=== PATIENT | male | born 1995 | race Caucasian/White ===

== ENCOUNTER 2016-07-20 18:16 | Emergency (ER) | payer SELFPAY ==
[~2016-07-20] VITALS: Ht 172.7 cm; Wt 92.0 kg
[2016-07-20 18:35] VITALS: TEMP 37.5; Ht 172.7 cm; Wt 92.0 kg
--- NOTE | 2016-07-20 19:41 | DIAGNOSTIC IMAGING REPORT ---
RIGHT ANKLE 3 VIEWS CLINICAL HISTORY: Right ankle injury. FINDINGS: 3 views of the right ankle are obtained. No prior studies are available for comparison at the time of dictation. The skeletal structures are well mineralized. No fracture is seen at the ankle joint. The ankle mortise is intact. Mild degenerative spurring is seen from the anterior tibial plafond. An os trigonum is incidentally noted. A small joint effusion is noted. Soft tissue swelling is present around the ankle. A spiral fracture of the fifth metatarsal is partially visualized. IMPRESSION: 1. Soft tissue swelling and joint effusion. No fracture is identified at the ankle joint. 2. A spiral fracture of the fifth metatarsal is partially visualized. Electronically signed by: Tyshawn Morales M.D. 07/20/2016 7:40 PM Dictated Date/Time: 07/20/2016 7:38 PM
--- NOTE | 2016-07-20 19:43 | DIAGNOSTIC IMAGING REPORT ---
RIGHT FOOT 3 VIEWS CLINICAL HISTORY: Right foot injury. FINDINGS: 3 views of the right foot are obtained. No prior studies are available for comparison at the time of dictation. The skeletal structures are well mineralized. There is a minimally distracted and incomplete spiral fracture through the distal shaft of the fifth metatarsal with overlying soft tissue edema. No additional fracture is seen. Mild degenerative change and spurring is seen at the first tarsometatarsal joint. The joint spaces of the foot are otherwise well-maintained. An os trigonum is incidentally noted. Soft tissue swelling is also seen around the ankle joint. IMPRESSION: There is a minimally distracted incomplete spiral fracture through the distal shaft of the fifth metatarsal as above with overlying soft tissue edema. Electronically signed by: Tyshawn Morales M.D. 07/20/2016 7:41 PM Dictated Date/Time: 07/20/2016 7:40 PM
[2016-07-20 20:05] VITALS: BP 141/96; PULSE 96; O2SAT 99
--- NOTE | 2016-07-20 23:01 | EMERGENCY ROOM VISIT NOTE ---
History First contact with patient: 19:03 Chief Complaint: ANKLE PAIN Stated Complaint: RIGHT ANKLE PAIN History of Present Illness The patient is a 21 year old male who presents to the Emergency Room with complaints of right ankle and foot pain. The patient was at a friend's house, playing with children when he slipped and twisted his right ankle and foot. He now rates his pain a 10 out of 10 with weightbearing. He denies any pain extending into the leg or knee. Denies paresthesias or numbness of the right foot or toes. He also denies any prior history of right ankle or foot injuries. Review of Systems 10 system review was performed and was negative except for pertinent positives and negatives as indicated in history of present illness Past Medical/Surgical History Medical Problems: (1) Diarrhea (2) Dog bite (3) Lip laceration Family History Unremarkable Social History Smoking Status: Current Every Day Smoker Marital Status: single Occupation Status: unemployed Current/Historical Medications No Active Prescriptions or Reported Meds Allergies Coded Allergies: No Known Allergies (Unverified , 07/20/16) Physical Exam Vital Signs Date Time Temp Pulse Resp B/P Pulse Ox O2 Delivery O2 Flow Rate FiO2 07/20/16 20:05 96 16 141/96 99 Room Air 07/20/16 18:35 37.5 97 18 140/83 100 Room Air Pain Rating (0-10): 0 Physical Exam CONSTITUTIONAL: Healthy and well nourished. Alert and oriented X 3 with positive affect. HEENT: Normocephalic, atraumatic. Pupils equal, round and reactive. MUSCULOSKELETAL: Examination shows notable tenderness to palpation over the mid to distal fifth metatarsal region. There is mild edema without any open wounds. No tenderness to palpation of the phalanges. He has minimal tenderness to palpation over the lateral ankle region. Negative anterior draw. Pedal pulses are intact. INTEGUMENTARY: No rash or other significant dermatologic conditions noted. NEUROLOGIC: Right foot and toes are sensory intact. Medical Decision & Procedures ER Provider Diagnostic Interpretation: My interpretation of right foot and ankle x-rays shows a spiral fracture of the distal fifth metatarsal. Radiologist report is as follows: RIGHT FOOT 3 VIEWS CLINICAL HISTORY: Right foot injury. FINDINGS: 3 views of the right foot are obtained. No prior studies are available for comparison at the time of dictation. The skeletal structures are well mineralized. There is a minimally distracted and incomplete spiral fracture through the distal shaft of the fifth metatarsal with overlying soft tissue edema. No additional fracture is seen. Mild degenerative change and spurring is seen at the first tarsometatarsal joint. The joint spaces of the foot are otherwise well-maintained. An os trigonum is incidentally noted. Soft tissue swelling is also seen around the ankle joint. IMPRESSION: There is a minimally distracted incomplete spiral fracture through the distal shaft of the fifth metatarsal as above with overlying soft tissue edema. ED Course Patient history and physical exam were performed. Nurse's notes were reviewed. The patient refused any analgesics on initial exam. X-rays of the right ankle and foot shows a spiral fracture of the distal fifth metatarsal. A posterior Ortho-Glass splint and crutches were applied. Neurovascular check after splint placement was normal. The patient was instructed to follow-up with [facility] for further reevaluation and management. Ice and elevation for swelling. Ibuprofen and Tylenol in alternating fashion if needed for additional pain relief. The patient voiced understanding of all discharge instructions, was happy with plan of care, and rated his discomfort a 3 out of 10 at the time of discharge. Medical Decision Impression Primary Impression: Fracture of fifth metatarsal bone of right foot Departure Information Dispostion Home / Self-Care Condition GOOD Prescriptions No Active Prescriptions or Reported Meds Referrals Emeka Dao D.O. Forms HOME CARE DOCUMENTATION FORM, IMPORTANT VISIT INFORMATION Patient Instructions My [facility] Additional Instructions Ice and elevate foot for swelling and pain. Ibuprofen 800 mg and/or Tylenol 1000 mg every 8 hours. You may also alternate these medications for more effective pain relief: Ibuprofen --4 HRS--> Tylenol --4 HRS--> ibuprofen --4 HRS--> Tylenol .... Keep splint dry. Follow-up with [facility] (Dr. Dao) for further evaluation and treatment - call for appointment. Problem Qualifiers Primary Impression: Fracture of fifth metatarsal bone of right foot Encounter type: initial encounter Fracture type: closed Fracture alignment : nondisplaced Qualified Codes: S92.354A - Nondisplaced fracture of fifth metatarsal bone, right foot, initial encounter for closed fracture
== END 2016-07-20 20:28 | disposition home or self-care (01) ==
LOC: C.EDB 18:17 → C.EDD 20:28
DX: S92.354A Nondisplaced fracture of fifth metatarsal bone, right foot, initial encounter for closed fracture (principal); X50.0XXA Overexertion from strenuous movement or load, initial encounter; Y92.89 Other specified places as the place of occurrence of the external cause; F17.210 Nicotine dependence, cigarettes, uncomplicated

== ENCOUNTER 2017-08-22 19:50 | Emergency (ER) | payer OTHER ==
[~2017-08-22] VITALS: Ht 175.3 cm; Wt 86.0 kg
[2017-08-22 19:52] VITALS: BP 149/93; PULSE 82; TEMP 36.6; O2SAT 98; Ht 175.3 cm; Wt 86.0 kg
[2017-08-22] MEDS ORDERED: IBUP-1050 PO (20:23)
[2017-08-22] MEDS ORDERED: PENI500T2 PO (20:39)
--- NOTE | 2017-08-22 20:39 | EMERGENCY ROOM VISIT NOTE ---
ED Visit Note First contact with patient: 19:56 CHIEF COMPLAINT: Bilateral upper dental pain times several weeks HISTORY OF PRESENT ILLNESS: Patient is a 22-year-old male who presents emergency department for evaluation of bilateral upper dental pain. He has had symptoms for several weeks. He notes pain from his upper molars bilaterally. He describes the pain as a constant, throbbing pain it radiates to his ears. He states that it is constant and presently rates as a 10/10. He has tried taking Tylenol intermittently for his symptoms. He occasionally feels nauseous due to the pain. He reports that he has not been brushing his teeth lately due to discomfort. He does not have insurance and is unable to see a dentist. His roommate recently finished dental assistant curator school, and did contact [facility] who referred the patient to the emergency department pending intake interview. Denies facial swelling or fever. REVIEW OF SYSTEMS: Review of systems as per HPI. All other systems reviewed were negative. At least 6 systems reviewed. PMH: Electronic medical records are reviewed and summarized as above/below. See Problem List. SOCIAL HISTORY: Patient lives at home. Smoker. PHYSICAL EXAM: Vital Signs: Reviewed Nurse's notes. CONSTITUTIONAL: Patient is a well-appearing 22-year-old male who is awake and alert and in no acute distress. Vital signs are stable. EARS: Tympanic membranes intact, not inflamed, have normal contour. External canals clear. MOUTH: Overall the patient has poor dentition. Multiple teeth are grossly fractured and carious and in various states of decay. The left upper second molar and the left upper third molar are both fractured and grossly carious, with some erosion to the gumline and exposed dentin. There is slight swelling along the gumline although no focal abscess. Mucous membranes moist, no lesions , tongue and gums appear normal. THROAT: No pharyngeal injection, exudates, or tonsillar hypertrophy. Airway is patent. No trismus noted. FACE: No facial swelling is appreciated. No cellulitic changes. NECK: No lymphadenopathy. . ED COURSE: The patient was seen and assessed as above. His old records were reviewed. He will be placed on [employer]. He was given a [place] home pack. He was encouraged to keep his appointment with [facility] to become established for dental care. He does not have any evidence for facial cellulitis, drainable abscess or Noel's angina at this time. Medication reconciliation: I attest that I have personally reviewed the patient' s current medication list. Patient was reviewed in the [facility] Prescription Drug Monitoring Program, and there were no red flags noted. Blood pressure screening: Patient was found to have a slightly elevated blood pressure due to circumstances. I do not believe that the patient requires hypertension monitoring. Problem List Medical Problems: (1) Concussion Status: Resolved (2) Diarrhea Status: Resolved (3) Dog bite Status: Resolved (4) Fracture of fifth metatarsal bone of right foot Status: Resolved (5) Fracture of fifth metatarsal bone of right foot Status: Resolved (6) Hand laceration Status: Resolved (7) Lip laceration Status: Resolved (8) Tourette's syndrome Status: Chronic Current/Historical Medications Scheduled Penicillin V Potassium (Veetids), 500 MG PO QID Scheduled PRN Ibuprofen (Advil), 400 MG PO DAILY PRN for Pain or Fever Allergies Coded Allergies: No Known Allergies (Unverified , 08/22/17) Vital Signs Date Time Temp Pulse Resp B/P (MAP) Pulse Ox O2 Delivery O2 Flow Rate FiO2 08/22/17 19:52 36.6 82 20 149/93 98 Room Air Medications Administered Medications (Trade) Dose Ordered Sig/Richard Route Start Time Stop Time Status Last Admin Dose Admin Penicillin V Potassium (Pen-Vk 500MG Home Pack) 1 homepack UD ONCE PO 08/22/17 20:45 08/22/17 20:46 DC 08/22/17 20:42 1 HOMEPACK Acetaminophen/ Hydrocodone Bitart ([place] 5/325mg Home Pack) 1 homepack UD ONCE PO 08/22/17 20:45 08/22/17 20:46 DC 08/22/17 20:42 1 HOMEPACK Departure Information Impression Primary Impression: Dental caries Prescriptions Penicillin V Potassium (VEETIDS) 500 Mg Tab 500 MG PO QID, #40 TAB Prov: Lenka Mendez PA 08/22/17 Referrals No Doctor, Assigned (PCP) Patient Instructions My [facility] Additional Instructions Penicillin 500mg: Take one pill four times daily for 10 days for your dental infection. All antibiotics can cause diarrhea. If this occurs and you feel worse or it does not resolve in 1-2 days follow up with your doctor or return to the Emergency Department as this could be signs of serious underlying problems. Any medication can cause an allergic reaction, stop the pills immediately and return to the ER for rash, hives, breathing difficulties, or swelling. Finished all of the antibiotics even if your symptoms improved. Ibuprofen(Motrin, Advil) may be used for fever or pain. Use 600mg every six hours as needed. Take with food. Avoid using more than 2400mg in a 24 hour period. Do not use 2400mg per day for more than three consecutive days without physician direction. Prolonged inappropriate use can lead to stomach upset or ulcers. (AND/OR) Acetaminophen(Tylenol) may be used for fever or pain. Use 1000mg every six hours as needed. Avoid using more than 4000mg in a 24 hour period. Hydrocodone/Acetaminophen ([place]) 5/325 mg: Take 1-2 pills every four hours for breakthrough pain. Avoid alcohol, operating machinery or dangerous equipment, working on ladders or roofs, DRIVING, or situations where being under the influence may be dangerous. It is recommended to use an [id number] stool softener such as Colace, 100mg twice daily while taking this medication to avoid constipation. Saltwater gargles after meals and before bedtime. Soft foods. Orajel/Anbesol/clove oil as needed for discomfort. Followup with your dentist for definitive management. You may also follow up with your primary care physician for pain/care management until you can be seen by your dentist.
[2017-08-22] MEDS ORDERED: NORCO 5/325MG HOME PACK PO ONE (20:45)
[2017-08-22] MEDS ORDERED: PENICILLIN HOME PACK 500MG (4 DOSES)BTL PO ONE (20:45)
== END 2017-08-22 20:47 | disposition home or self-care (01) ==
LOC: C.EDB 19:51 → C.EDD 20:47
DX: K02.9 Dental caries, unspecified (principal); F17.200 Nicotine dependence, unspecified, uncomplicated

== ENCOUNTER 2021-01-29 00:24 | Inpatient (IN) ==
[2021-01-29] MEDS ORDERED: VANCOMYCIN CONSULT ACTIVE PRN (00:44)
[2021-01-29] MEDS ORDERED: PIPERACILL/TAZOBAC CONSULT ACTIVE PRN (00:44)
[2021-01-29] MEDS ORDERED: SODIUM CHLORIDE 0.9% 1000ML 1,000 ML IV ONE ×3 (00:44→02:06)
[2021-01-29] MEDS ORDERED: VANCOMYCIN HCL 1,000 MG in SODIUM CHLORIDE 0.9% 500 ML IV ONE (00:44)
[2021-01-29] MEDS ORDERED: PIPERACILLIN/TAZOBACTAM 4.5 GM/120 ML BAG IV ONE (00:44)
--- NOTE | 2021-01-29 00:50 | Emergency Department Note ---
Impression & Plan Septic shock, Facial cellulitis ED Provider Note Name: NIKI VIRAMONTES Age: 25 Sex: M Arrives Via: Walk-In Informant: Patient ED Provider: Pepe Cavanaugh MD Chief Complaint: Dental Pain Impression: Septic Shock Facial Cellulitis Medical Decision Makin yr old ill appearing male with moderate right sided facial cellulitis. No submental swelling, tongue elevation, nor airway compromise and is tolerating secretions without difficulty. On initial evaluation he is pale, diaphoretic, hypotensive and ill appearing. Immediately cultures obtained and fluids resus initiated with 2 IVs. WBC elevated, lactate elevated consistent with sepsis. Empiric Zosyn/Vanco given. BP improved with fluid boluses and over 2 hours Lactate cleared with resus. Patient feeling vastly better, sleeping comfortably and respiratory difficulty. Multiple re-evaluations and no submental swelling, just the earlier noted right facial swelling. No evidence of airway compromise. CT Neck w contrast obtained which shows likely dental source of right facial cellulitis with right anterolateral soft tissue swelling through subq and platysma without drainable abscess. No free air nor mention of submental infiltration at this time. On exam I do not feel this is consistent with Ludwigs and patient is breathing comfortably in no distress. Discussed with ENT personal service workers (Dr Ruiz) at [facility] as apparently they are taking the consult calls for [facility] at [facility]? He agreed with abx, steroids and without airway compromise nor drainable abscess no clear indication for need of transfer at this time. Reviewed with Dr Francisco who will evaluate further. Prior Medical Record and Triage/Nursing Notes reviewed by Me Additional history obtained from chart Differentials:Dental caries, dental abscess, Ludwigs angina, Vincent angina, dental fracture, facial cellulitis, parotitis, osteomyelitis, sinus infection, peritonsillar abscess. Vital Signs: reviewed and remarkable for no significant abnormalities Interventions: Saline lock, NSS Bolus 3 L IV, Zosyn 4.5mg IV, vanco 1gm iv, decadron 10mg iv Labs:Reviewed and remarkable for elevated wbc/lactate Imaging:[facility] Radiologist interpretation reviewed by me: "CT NECK: Airway is intact. Mild enlargement of the tonsillar adenoids. No peritonsillar abscess. Epiglottis, trachea and upper lung grullon are unremarkable. No retropharyngeal fluid. Extensive right anterolateral facial inflammatory changes partially extending into the anterolateral neck subcutaneous tissues. Subcutaneous fat infiltration. Thickening of the platysma. Trace fluid deep to the platysma. Inflammatory changes about the right side of the mandible. No definite abscess. No bubbles of air in the soft tissues. No foreign body. Right- sided lower premolar apical lucency with a subtle adjacent cortical defect. Other tooth lucencies are seen bilaterally. Left maxillary sinus cyst. Impression: Right facial inflammatory changes likely dental origin given the dental disease. No abscess. Radiologist: Nicholas Jesus M.D." EKG:Per My Interpretation: Indication sepsis: NSR 65 bpm, qtc 443. IRBBB. No Ectopy. No Ischemia. No previous for comparison Cardiac/Tele Monitoring: Cardiac Monitoring: An Order was placed for continuous cardiac monitoring. The monitor shows a rate of 70 with a normal sinus rhythm. Consults:Dr Francisco Hospitalist, Dr Joseph Darling [facility] ENT Plan: Disposition:Hospitalization. Condition: Good History of Present Illness:25 yr old male arrives for evaluation of dental pain. Patient notes several weeks of right dental infection. Put it off though swelling increasing last few days. Only able to eat applesauce due to pain. Associated with nausea, fatigue and weakness. Swelling started going down neck. Almost passed out with standing so came to ED. Used single dose Amoxicillin prior to arrival without improvement. Movement makes worse, rest makes better. History poor dentition and periodic dental infection. No trauma, injuries, falls. No swallowing difficulty nor difficulty breathing. Denies traum a/injury. ROS: See above HPI for pertinent positives & negatives. A total of 10 systems reviewed and were otherwise negative. Past Medical History:Tourettes Past Surgical History:none Family History:Healthy Social History:Smokes, no etoh, no drugs Home Medications:None Allergies:NKDA Vitals:Blood Pressure: 70/51, Pulse 79, RR 22, T 37.2C, O2 99% on RA Physical Exam: GENERAL: Patient is unwell/cachectic appearing and in mild distress. Malnouris hed appearing EYES: No scleral icterus, unremarkable pupils. ENT: Mucous membranes dry, no nasal congestion. Very poor dentition with erythematous right lower gumline and no palpated abscess deep along right lateral jawline but moderate edema along lower face FACE: Large swelling right lower face with TTP. NECK: Right jaw line swelling and TTP, moderate lymphadenopathy right ant/lat neck. No TTP under jaw. Nomeningismus, trachea is midline. RESPIRATORY: No dyspnea. Clear to auscultation and equal bilaterally. No wheeze, no rhonchi. CARDIOVASCULAR: Regular rate and rhythm.No murmurs, rubs, gallops appreciated. GASTROINTESTINAL: Abdomen soft, non-tender, no peritonitis.Bowel sounds po sitive.No masses appreciated. BACK: No midline tenderness, no CVA tenderness EXTREMITIES: Normal motion all extremities, no cyanosis, no edema. NEUROLOGIC: Alert and oriented, no acute motor or sensory deficits, no focal weakness, cranial nerves grossly intact. SKIN: No rash, no jaundice, no diaphoresis. PSYCH: Appropriate GCS: 15 ED Course: Times/Reassessments: vastly improved with IV fluids and feeling well. Critical Care: I have personally spent 43 minutes of critical care time in the direct management of this patient. Septic shock secondary to facial cellulitis resulting in hypotension, elevated wbc, and lactic acidosis requiring fluid resus. This was a life/limb threatening event. This 43 minutes is in excess of all separately billable procedures. Pepe Cavanaugh MD Past Med/Surg History Social History Smoking Status: Current every day smoker Tobacco Type: Cigarettes Preferred Language: Czech Feels Safe at Home: Yes Allergies Allergies Allergy/AdvReac Type Severity Reaction Status Date / Time No Known Allergies Allergy Unverified 01/29/21 02:45 Home Meds Home Medications Medication Instructions Recorded Confirmed No Known Home Medications 01/29/21 01/29/21 Results & Data (ED) Vital Signs Vital Signs - 24 hr 01/29/21 00:28 01/29/21 01:45 01/29/21 03:01 Temperature 37.2 C Temperature Source Temporal Artery Scan Pulse Rate 79 74 Pulse Rate [Apical] 65 Pulse Rate from SpO2 Sensor 75 Respiratory Rate 22 15 15 Respiratory Depth Normal Blood Pressure 70/51 L 109/63 Blood Pressure [Left Arm] 102/61 Blood Pressure Mean 57 78 Blood Pressure Mean [Left Arm] 74 Pulse Oximetry 99 100 100 Oxygen Delivery Method Room Air Room Air Sepsis Recent Fever Within 48 Hours No Sepsis New/Unexplained Change in Mental Status N/A Sepsis Action Taken by Nursing Physician Notified 01/29/21 03:02 01/29/21 03:30 01/29/21 04:00 Temperature Temperature Source Pulse Rate 77 78 Pulse Rate [Apical] 76 Pulse Rate from SpO2 Sensor 75 75 Respiratory Rate 18 13 17 Respiratory Depth Normal Blood Pressure 104/61 108/64 Blood Pressure [Left Arm] 109/63 Blood Pressure Mean 75 78 Blood Pressure Mean [Left Arm] 78 Pulse Oximetry 100 98 99 Oxygen Delivery Method Room Air Room Air Room Air Sepsis Recent Fever Within 48 Hours Sepsis New/Unexplained Change in Mental Status Sepsis Action Taken by Nursing Laboratory Data Result diagrams: 01/29/21 00:58 01/29/21 00:58 Lab Results 01/29/21 01/29/21 01/29/21 Range/Units 00:58 00:58 00:58 WBC 21.74 H (4.8-10.8) K/uL RBC 5.03 (4.7-6.1) M/uL Hgb 15.9 (14.0-18.0) g/dL Hct 44.5 (42-52) % MCV 88.5 (80-100) fL MCH 31.6 (25-34) pg MCHC 35.7 (32-36) g/dL RDW Std Deviation 42.2 (36.4-46.3) fL RDW Coeff of Jermaine 13.2 (11.5-14.5) % Plt Count 342 (130-400) K/uL MPV 10.7 H (7.4-10.4) fL Immature Gran % (Auto) 0.4 % Neut % (Auto) 74.4 % Lymph % (Auto) 17.7 % Mckinley % (Auto) 6.8 % Eos % (Auto) 0.5 % Baso % (Auto) 0.2 % Neut # (Auto) 16.21 H (1.4-6.5) K/uL Lymph # (Auto) 3.84 H (1.2-3.4) K/uL Mckinley # (Auto) 1.47 H (0.11-0.59) K/uL Eos # (Auto) 0.10 (0-0.5) K/uL Baso # (Auto) 0.04 (0-0.2) K/uL Immature Gran # (Auto) 0.08 H (0.00-0.02) K/uL PT 10.9 (9.0-12.0) Seconds INR 1.1 (0.9-1.1) APTT 24.1 (21.0-31.0) Seconds PTT Ratio 0.9 Sodium (136-145) mmol/L Potassium (3.5-5.1) mmol/L Chloride (98-107) mmol/L Carbon Dioxide (21-32) mmol/L Anion Gap (3-11) BUN (7-18) mg/dl Creatinine (0.6-1.4) mg/dl Est Cr Clr Drug Dosing ml/min Est GFR ( Amer) ml/min Est GFR (Non-Af Amer) ml/min BUN/Creatinine Ratio (10-20) Glucose (70-99) mg/dl Lactate 3.5 H* (0.4-2.0) mmol/L Calcium (8.5-10.1) mg/dl Magnesium (1.8-2.4) mg/dl Total Bilirubin (0.2-1) mg/dl Direct Bilirubin (0-0.2) mg/dl AST (15-37) U/L ALT (12-78) U/L Alkaline Phosphatase (45-117) U/L Troponin I (0-0.045) ng/ml Total Protein (6.4-8.2) gm/dl Albumin (3.4-5.0) gm/dl Lipase (73-393) U/L Procalcitonin (0-0.5) ng/ml COVID-19 Eval Order SARS-CoV-2 (PCR) (Negative) 01/29/21 01/29/21 01/29/21 Range/Units 00:58 00:58 02:29 WBC (4.8-10.8) K/uL RBC (4.7-6.1) M/uL Hgb (14.0-18.0) g/dL Hct (42-52) % MCV (80-100) fL MCH (25-34) pg MCHC (32-36) g/dL RDW Std Deviation (36.4-46.3) fL RDW Coeff of Jermaine (11.5-14.5) % Plt Count (130-400) K/uL MPV (7.4-10.4) fL Immature Gran % (Auto) % Neut % (Auto) % Lymph % (Auto) % Mckinley % (Auto) % Eos % (Auto) % Baso % (Auto) % Neut # (Auto) (1.4-6.5) K/uL Lymph # (Auto) (1.2-3.4) K/uL Mckinley # (Auto) (0.11-0.59) K/uL Eos # (Auto) (0-0.5) K/uL Baso # (Auto) (0-0.2) K/uL Immature Gran # (Auto) (0.00-0.02) K/uL PT (9.0-12.0) Seconds INR (0.9-1.1) APTT (21.0-31.0) Seconds PTT Ratio Sodium 138 (136-145) mmol/L Potassium 3.1 L (3.5-5.1) mmol/L Chloride 103 (98-107) mmol/L Carbon Dioxide 27 (21-32) mmol/L Anion Gap 8.0 (3-11) BUN 11 (7-18) mg/dl Creatinine 1.35 (0.6-1.4) mg/dl Est Cr Clr Drug Dosing 56.3 ml/min Est GFR ( Amer) 82.8 ml/min Est GFR (Non-Af Amer) 71.4 ml/min BUN/Creatinine Ratio 7.9 L (10-20) Glucose 158 H (70-99) mg/dl Lactate (0.4-2.0) mmol/L Calcium 9.4 (8.5-10.1) mg/dl Magnesium 2.1 (1.8-2.4) mg/dl Total Bilirubin 0.7 (0.2-1) mg/dl Direct Bilirubin 0.2 (0-0.2) mg/dl AST 21 (15-37) U/L ALT 29 (12-78) U/L Alkaline Phosphatase 70 (45-117) U/L Troponin I < 0.015 (0-0.045) ng/ml Total Protein 8.5 H (6.4-8.2) gm/dl Albumin 4.7 (3.4-5.0) gm/dl Lipase 102 (73-393) U/L Procalcitonin < 0.05 (0-0.5) ng/ml COVID-19 Eval Order Covid19 at [facility] SARS-CoV-2 (PCR) (Negative) 01/29/21 01/29/21 Range/Units 02:29 04:04 WBC (4.8-10.8) K/uL RBC (4.7-6.1) M/uL Hgb (14.0-18.0) g/dL Hct (42-52) % MCV (80-100) fL MCH (25-34) pg MCHC (32-36) g/dL RDW Std Deviation (36.4-46.3) fL RDW Coeff of Jermaine (11.5-14.5) % Plt Count (130-400) K/uL MPV (7.4-10.4) fL Immature Gran % (Auto) % Neut % (Auto) % Lymph % (Auto) % Mckinley % (Auto) % Eos % (Auto) % Baso % (Auto) % Neut # (Auto) (1.4-6.5) K/uL Lymph # (Auto) (1.2-3.4) K/uL Mckinley # (Auto) (0.11-0.59) K/uL Eos # (Auto) (0-0.5) K/uL Baso # (Auto) (0-0.2) K/uL Immature Gran # (Auto) (0.00-0.02) K/uL PT (9.0-12.0) Seconds INR (0.9-1.1) APTT (21.0-31.0) Seconds PTT Ratio Sodium (136-145) mmol/L Potassium (3.5-5.1) mmol/L Chloride (98-107) mmol/L Carbon Dioxide (21-32) mmol/L Anion Gap (3-11) BUN (7-18) mg/dl Creatinine (0.6-1.4) mg/dl Est Cr Clr Drug Dosing ml/min Est GFR ( Amer) ml/min Est GFR (Non-Af Amer) ml/min BUN/Creatinine Ratio (10-20) Glucose (70-99) mg/dl Lactate 1.1 (0.4-2.0) mmol/L Calcium (8.5-10.1) mg/dl Magnesium (1.8-2.4) mg/dl Total Bilirubin (0.2-1) mg/dl Direct Bilirubin (0-0.2) mg/dl AST (15-37) U/L ALT (12-78) U/L Alkaline Phosphatase (45-117) U/L Troponin I (0-0.045) ng/ml Total Protein (6.4-8.2) gm/dl Albumin (3.4-5.0) gm/dl Lipase (73-393) U/L Procalcitonin (0-0.5) ng/ml COVID-19 Eval Order SARS-CoV-2 (PCR) NEGATIVE (Negative) Administered Medications Potassium Chloride 40 meq/ (Sodium Chloride) 1,020 mls @ 250 mls/hr IV .Q4H5M ONE Stop: 01/29/21 09:26 Last Admin: 01/29/21 06:27 Dose: 250 mls/hr Documented by: [id number] Discontinued Medications Dexamethasone Sodium Phosphate (DexamethasonePf 10 Mg/Ml Vial) 10 mg IV NOW ONE Stop: 01/29/21 05:17 Last Admin: 01/29/21 06:04 Dose: 10 mg Documented by: [id number] Vancomycin HCl 1,000 mg/ (Sodium Chloride) 520 mls @ 200 mls/hr IV NOW ONE Stop: 01/29/21 03:19 Last Infusion: 01/29/21 04:38 Dose: 0 mls/hr Documented by: [id number] Admin: 01/29/21 01:54 Dose: 200 mls/hr Documented by: [id number] Sodium Chloride (Nss 1000ml) 1,000 mls @ 999 mls/hr IV .Q1H1M ONE Stop: 01/29/21 01:44 Last Infusion: 01/29/21 04:08 Dose: 0 mls/hr Documented by: [id number] Admin: 01/29/21 01:15 Dose: 999 mls/hr Documented by: [id number] Sodium Chloride (Nss 1000ml) 1,000 mls @ 999 mls/hr IV .Q1H1M ONE Stop: 01/29/21 01:44 Last Infusion: 01/29/21 02:16 Dose: 0 mls/hr Documented by: [id number] Admin: 01/29/21 01:15 Dose: 999 mls/hr Documented by: [id number] Piperacillin Sod/Tazobactam Sod (Zosyn) 4.5 gm in 120 mls @ 240 mls/hr IV NOW ONE Stop: 01/29/21 01:13 Last Infusion: 01/29/21 01:43 Dose: 0 mls/hr Documented by: [id number] Admin: 01/29/21 01:13 Dose: 240 mls/hr Documented by: [id number] Sodium Chloride (Nss 1000ml) 1,000 mls @ 999 mls/hr IV .Q1H1M ONE Stop: 01/29/21 03:06 Last Infusion: 01/29/21 03:24 Dose: 0 mls/hr Documented by: [id number] Admin: 01/29/21 02:23 Dose: 999 mls/hr Documented by: [id number] Ioversol (Optiray 320 100ml) 94 ml IV ONCE ONE Stop: 01/29/21 00:54 Last Admin: 01/29/21 00:53 Dose: 94 ml Documented by: [id number] Potassium Chloride (Potassium Chloride Crtab 20 Meq Tabcr) 40 meq PO NOW STA Stop: 01/29/21 06:06 Last Admin: 01/29/21 06:27 Dose: 40 meq Documented by: [id number] Discharge Plan Visit Data Chief Complaint: Dental/Oral Stated Complaint: TOOTH INFECTION ED Provider: Pepe Cavanaugh Discharge Problem: Septic shock, Facial cellulitis Forms Stand Alone Forms: [employer] Prescriptions Prescriptions: No Action No Known Home Medications RF: 0 Referrals Referrals: PCP,NO [Primary Care Provider] -
[2021-01-29] MEDS ORDERED: OPTIRAY 320 100ml IV ONE (00:53)
[2021-01-29 01:08] LABS: Basophils # (auto) 0.04 K/uL (0-0.2); Basophils % (auto) 0.2 %; Eosinophils % (auto) 0.5 %; Hematocrit (blood only) 44.5 % (42-52); Hemoglobin 15.9 g/dL (14.0-18.0); Immature Granulocytes # (auto) 0.08 K/uL (0.00-0.02); Immature Granulocytes % (auto) 0.4 %; Lymphocytes # (auto) 3.84 K/uL (1.2-3.4); Lymphocytes % (auto) 17.7 %; Mean Corpuscular Hemoglobin 31.6 pg (25-34); Mean Corpuscular Hgb Conc 35.7 g/dL (32-36); Mean Corpuscular Volume 88.5 fL (80-100); Mean Platelet Volume 10.7 fL (7.4-10.4); Monocytes # (auto) 1.47 K/uL (0.11-0.59); Monocytes % (auto) 6.8 %; Neutrophils # (auto) 16.21 K/uL (1.4-6.5); Neutrophils % (auto) 74.4 %; Platelet Count 342 K/uL (130-400); RDW Coefficient of Variation 13.2 % (11.5-14.5); RDW Standard Deviation 42.2 fL (36.4-46.3); Red Blood Count 5.03 M/uL (4.7-6.1); White Blood Count 21.74 K/uL (4.8-10.8)
[2021-01-29 01:22] LABS: INR 1.1 (0.9-1.1); Partial Thromboplastin Ratio 0.9; Partial Thromboplastin Time 24.1 Seconds (21.0-31.0); Prothrombin Time 10.9 Seconds (9.0-12.0)
[2021-01-29 01:33] LABS: Alanine Aminotransferase 29 U/L (12-78); Albumin Level 4.7 gm/dl (3.4-5.0); Aspartate Aminotransferase 21 U/L (15-37); BUN Creatinine Ratio 7.9 (10-20); Bilirubin Direct 0.2 mg/dl (0-0.2); Blood Urea Nitrogen 11 mg/dl (7-18); Calcium 9.4 mg/dl (8.5-10.1); Carbon Dioxide 27 mmol/L (21-32); Chloride 103 mmol/L (98-107); Creatinine Clr Calc Pharmacy 56.3 ml/min; Est GFR (African American) 82.8 ml/min; Est GFR (Non-African American) 71.4 ml/min; Glucose 158 mg/dl (70-99); Lipase 102 U/L (73-393); Magnesium 2.1 mg/dl (1.8-2.4); Potassium 3.1 mmol/L (3.5-5.1); Sodium 138 mmol/L (136-145)
[2021-01-29 01:39] LABS: Alkaline Phosphatase 70 U/L (45-117); Bilirubin,Total 0.7 mg/dl (0.2-1); Total Protein 8.5 gm/dl (6.4-8.2); Troponin I < 0.015 ng/ml (0-0.045)
[2021-01-29] MEDS ORDERED: dexAMETHasone**PF** 10 MG/ML VIAL IV ONE (05:16)
[2021-01-29] MEDS ORDERED: POTASSIUM CHLORIDE PWD 20 MEQ PACK PO STA (05:21)
[2021-01-29] MEDS ORDERED: POTASSIUM CHLORIDE 40 MEQ in SODIUM CHLORIDE 0.9% 1000ML 1,000 ML IV ONE (05:22)
[2021-01-29] MEDS ORDERED: POTASSIUM CHLORIDE CRTAB 20 MEQ TABCR PO STA (06:05)
--- NOTE | 2021-01-29 06:06 | History & Physical Report ---
Date of Service January 29, 2021 Assessment & Plan (1) Severe sepsis: Plan: SIRS plus lactic acid elevation Secondary to community-acquired odontogenic/deep neck space infection Patient currently without signs and symptoms of airway obstruction. Syncopal event secondary to transient hypotension BP currently improved post initial intervention at the ER. Repeat lactic acid within normal limits. hypokalemia secondary to poor p.o. intake Tourette syndrome, currently not on medications, last outpatient Neurology visit was 15 years ago Malnutrition, low BMI Ongoing tobacco abuse Medical telemetry CS, Unasyn Check MRSA, add Daptomycin if positive Medical management and eventual oral maxillofacial consultation for tooth extraction as per [facility] (Dr. Ruiz) recommendations as per conversation with ED provider. IVF, replace potassium Nutrition consult RE low BMI DVT prophylaxis. Heparin subcu Full code ADDENDUM : Dr. Ruiz ([facility]) recommends Decadron 8 mg every 8 hours for next 24 hours. Text document was generated using [email or web address] voice recognition software. It may contain grammatical or spelling errors. Kindly contact undersigned for clarification of any documentation item in question. History of Present Illness Chief Complaint: Dental pain/facial swelling Primary Care Provider: Phong Armstrong History obtained from patient and records. Medical history significant for Tourette syndrome, ongoing tobacco abuse. Few days history of right dental pain on the front teeth followed by swelling of the face, jaw, neck. No chest pain, no S OB, no headache, no sore throat, no voice change, no trouble opening the mouth. No fever, no chills. Some nausea and weakness. Transient syncopal event at home. No improvement with single dose of amoxicillin taken at home. SBP 70s at one point in the ER. Patient given Zosyn, Vancomycin, and Decadron at the ER. Medical History as above Surgical History : None Family History : Hypertension Personal/Social history : Half pack daily, no EtOH intake, currently unemployed/prior [employer] employment Allergies Allergy/AdvReac Type Severity Reaction Status Date / Time No Known Allergies Allergy Unverified 01/29/21 02:45 Home Medications Medication Instructions Recorded Confirmed Type No Known Home Medications 01/29/21 01/29/21 History Past Med/Surg History Social History Smoking Status: Current every day smoker Tobacco Type: Cigarettes Preferred Language: Brazilian Feels Safe at Home: Yes Review of Systems Review of Systems: As per HPI, all 10 systems reviewed, all other ROS negative Physical Exam Physical Exam: GENERAL: Comfortable, episodic lethargy, underweight, no respiratory distress SKIN: Normal color, warm HEENT: [place] palpebral conjunctivae, no ptosis, dry buccal mucosa, poor dentition, wiggly carious premolar, right mandible, no trismus NECK : Supple, right neck swelling with minimal tenderness CHEST : CTA, no tenderness HEART : RRR, no obvious murmurs ABDOMEN: no distention, nontender EXTREMITIES : No LE swelling/tenderness, no other conspicuous deformities noted NEUROLOGIC : Episodic lethargy, no facial asymmetry, no other gross focality Results & Data Results & Data ([facility]) Vital Signs (Past 12 Hours) Vital Signs Temp Pulse Pulse Resp BP BP Pulse Ox 01/29/21 04:00 78 17 108/64 99 01/29/21 03:30 77 13 104/61 98 01/29/21 03:02 76 18 109/63 100 01/29/21 03:01 74 15 109/63 100 01/29/21 01:45 65 15 102/61 100 01/29/21 00:28 37.2 C 79 22 70/51 L 99 Laboratory Results Laboratory Results WBC 21.74 K/uL (4.8-10.8) H 01/29/21 00:58 RBC 5.03 M/uL (4.7-6.1) 01/29/21 00:58 Hgb 15.9 g/dL (14.0-18.0) 01/29/21 00:58 Hct 44.5 % (42-52) 01/29/21 00:58 MCV 88.5 fL (80-100) 01/29/21 00:58 MCH 31.6 pg (25-34) 01/29/21 00:58 MCHC 35.7 g/dL (32-36) 01/29/21 00:58 RDW Std Deviation 42.2 fL (36.4-46.3) 01/29/21 00:58 RDW Coeff of Jermaine 13.2 % (11.5-14.5) 01/29/21 00:58 Plt Count 342 K/uL (130-400) 01/29/21 00:58 MPV 10.7 fL (7.4-10.4) H 01/29/21 00:58 Immature Gran % (Auto) 0.4 % 01/29/21 00:58 Neut % (Auto) 74.4 % 01/29/21 00:58 Lymph % (Auto) 17.7 % 01/29/21 00:58 [place] % (Auto) 6.8 % 01/29/21 00:58 Eos % (Auto) 0.5 % 01/29/21 00:58 Baso % (Auto) 0.2 % 01/29/21 00:58 Neut # (Auto) 16.21 K/uL (1.4-6.5) H 01/29/21 00:58 Lymph # (Auto) 3.84 K/uL (1.2-3.4) H 01/29/21 00:58 [place] # (Auto) 1.47 K/uL (0.11-0.59) H 01/29/21 00:58 Eos # (Auto) 0.10 K/uL (0-0.5) 01/29/21 00:58 Baso # (Auto) 0.04 K/uL (0-0.2) 01/29/21 00:58 Immature Gran # (Auto) 0.08 K/uL (0.00-0.02) H 01/29/21 00:58 PT 10.9 Seconds (9.0-12.0) 01/29/21 00:58 INR 1.1 (0.9-1.1) 01/29/21 00:58 APTT 24.1 Seconds (21.0-31.0) 01/29/21 00:58 PTT Ratio 0.9 01/29/21 00:58 Sodium 138 mmol/L (136-145) 01/29/21 00:58 Potassium 3.1 mmol/L (3.5-5.1) L 01/29/21 00:58 Chloride 103 mmol/L (98-107) 01/29/21 00:58 Carbon Dioxide 27 mmol/L (21-32) 01/29/21 00:58 Anion Gap 8.0 (3-11) 01/29/21 00:58 BUN 11 mg/dl (7-18) 01/29/21 00:58 Creatinine 1.35 mg/dl (0.6-1.4) 01/29/21 00:58 Est Cr Clr Drug Dosing 56.3 ml/min 01/29/21 00:58 Est GFR ( Amer) 82.8 ml/min 01/29/21 00:58 Est GFR (Non-Af Amer) 71.4 ml/min 01/29/21 00:58 BUN/Creatinine Ratio 7.9 (10-20) L 01/29/21 00:58 Glucose 158 mg/dl (70-99) H 01/29/21 00:58 Lactate 1.1 mmol/L (0.4-2.0) 01/29/21 04:04 Calcium 9.4 mg/dl (8.5-10.1) 01/29/21 00:58 Magnesium 2.1 mg/dl (1.8-2.4) 01/29/21 00:58 Total Bilirubin 0.7 mg/dl (0.2-1) 01/29/21 00:58 Direct Bilirubin 0.2 mg/dl (0-0.2) 01/29/21 00:58 AST 21 U/L (15-37) 01/29/21 00:58 ALT 29 U/L (12-78) 01/29/21 00:58 Alkaline Phosphatase 70 U/L (45-117) 01/29/21 00:58 Troponin I < 0.015 ng/ml (0-0.045) 01/29/21 00:58 Total Protein 8.5 gm/dl (6.4-8.2) H 01/29/21 00:58 Albumin 4.7 gm/dl (3.4-5.0) 01/29/21 00:58 Lipase 102 U/L (73-393) 01/29/21 00:58 Procalcitonin < 0.05 ng/ml (0-0.5) 01/29/21 00:58 COVID-19 Eval Order Covid19 at [facility] 01/29/21 02:29 SARS-CoV-2 (PCR) NEGATIVE (Negative) 01/29/21 02:29 Diagnostic Findings Soft tissue neck CT initial read: Airwayis intact. Mild enlargement of the tonsillar adenoids. No peritonsillar abscess. Epiglottis, trachea and upper lung grullon are unremarkable. No retropharyngeal fluid. Extensive right anterolateral facial inflammatorychanges partiallyextending into the anterolateral neck subcutaneous tissues. Subcutaneous fat infiltration. Thickening of the platysma. Trace fluid deep to the platysma. Inflammatorychanges about the right side of the mandible. No definite abscess. No bubbles of air in the soft tissues. No foreign body. Right-sided lower premolar apical lucencywith a subtle adjacent cortical defect. Other tooth lucencies are seen bilaterally. Left maxillarysinus cyst. Impression:Right facial inflammatorychanges likelydental origin given the dental disease. No abscess. EKG as per my interpretation: Rate 65, NSR, normal axis, incomplete RBBB, T wave flattening inferior leads
[2021-01-29 07:42] LABS: Estimated Average Glucose 105 mg/dl; Hemoglobin A1C 5.3 % (4.5-5.6)
--- NOTE | 2021-01-29 08:32 | CT Scan Report ---
CT soft tissue neck w con HISTORY: 25 years-old Male rt lower jaw dental infection on to rt upper neck acute right lower jaw p ain with dental infection COMPARISON: None TECHNIQUE: Multiple axial of the soft tissues of the neck were obtained following the intravenous min istration of 94 mL Optiray 320. A dose lowering technique was used consistent with the principals of DON. FINDINGS: Extensive subcutaneous edema of the right mandibular tissues extends into the right cheek, right subm andibular distribution and right neck with mild thickening of the platysma fascia. This is centered a round a peripherally enhancing 1.5 x 0.4 cm abscess on image 178 series 3 which abuts the lateral cor danitza of the mandible. This is adjacent to a large periapical cyst involving the right first mandibular molar. Numerous moderate large periapical cysts with advanced dental caries. Mastoid air cells are clear. 2.4 cm focus of polypoid mucosal thickening involves the left maxillary sinus. Degenerative changes of the cervical spine. The imaged intracranial structures appear unremark able. Prominent right cervical chain lymph nodes are likely reactive measuring up to 8 mm. No pneumot horax. IMPRESSION: 1. Large periapical cyst of the right first mandibular molar. There is an adjacent 1.5 x 0.4 cm absce ss abutting the adjacent lateral cortex of the mandible. Extensive associated cellulitis. This findin g was called/faxed to the emergency department at time of dictation. 2. Additional multifocal periapical cysts with advanced dental caries. 3. Prominent reactive cervical chain lymph nodes. ACT 112: Negative or not required by law. The above report was generated using voice recognition software. It may contain grammatical, syntax o r spelling errors. Electronically signed by: Clive Gimenez M.D. 01/29/2021 8:31 AM
[2021-01-29] MEDS ORDERED: PROMETHAZINE HCL 6.25 MG in SODIUM CHLORIDE 0.9% 50 ML IV PRN (08:40)
[2021-01-29] MEDS ORDERED: KETOROLAC TROMETHAMINE 15 MG/ML VIAL IV PRN (08:40)
[2021-01-29] MEDS ORDERED: AMPICILLIN/SULBACTAM CONSULT ACTIVE PRN (08:43)
[2021-01-29] MEDS ORDERED: CONSULT PHARMACY SCH (09:00)
[2021-01-29] MEDS: ACETAMINOPHEN 325 MG TAB PO PRN ×2 (09:08→22:04)
--- NOTE | 2021-01-29 09:58 | Oral/Maxillofacial Consult ---
Date of Consultation January 29, 2021 Assessment & Plan (1) Severe sepsis: (2) Septic shock: (3) Facial cellulitis: (4) Periapical abscess of tooth with fistula: History of Present Illness Reason for Consultation: Dental pain, infection, dehydration, swelling, syncopal event Attending Physician: Jeronimo Mendoza MD History of Present Illness Oral Maxillofacial Surgery Exam in ED room C-4 at 8 am Jan 29 2021 Present Complaint: I have pain/swelling/drainage from my infected teeth. Symptoms have been ongoing for a while. The pain was so bad i fainted and came to the ER for evaluation Oral Exam: Finding-- tender gingival tissue with deep pocket formation.Teeth are in very poor shape grossly decayed & fractured. Removal of most if not all the teeth will be needed in the future. Imaging: CT soft tissue neck w con HISTORY: 25 years-old Male rt lower jaw dental infection on to rt upper neck acute right lower jaw pain with dental infection FINDINGS: Extensive subcutaneous edema of the right mandibular tissues extends into the right cheek, right submandibular distribution and right neck with mild thickening of the platysma fascia. This is centered around a peripherally enhancing 1.5 x 0.4 cm abscess on image 178 series 3 which abuts the lateral cortex of the mandible. This is adjacent to a large periapical cyst involving the right first mandibular molar. Numerous moderate large periapical cysts with advanced dental caries. Mastoid air cells are clear. 2.4 cm focus of polypoid mucosal thickening involves the left maxillary sinus. Degenerative changes of the cervical spine. The imaged intracranial structures appear unremarkable. Prominent right cervical chain lymph nodes are likely reactive measuring up to 8 mm. No pneumothorax. IMPRESSION: 1. Large periapical cyst of the right first mandibular molar. There is an adjac ent 1.5 x 0.4 cm abscess abutting the adjacent lateral cortex of the mandible. Extensive associated cellulitis. This finding was called/faxed to the emergency department at time of dictation. 2. Additional multifocal periapical cysts with advanced dental caries. 3. Prominent reactive cervical chain lymph nodes. Soft tissue: See CT report--no pus clinically able to be drained. The periapical lesions are chronic in nature. floor of the mouth, tongue, hard/soft palate, posterior pharyngeal area all with in normal limits, no pathology or abnormal findings noted. No gross swelling, chronic dental issues with acute presentation due to grossly fractured and decayed teeth. Most of symptoms lower right side, mild swelling, no drainable pus noted clinically or on CT scan. No airway compromise, tongue position, swallowing, neck all WNL NO AIRWAY issues noted Oral Care: Overall oral care is jayda poor Occlusion: Class II with deep bite-- dental crowding TMJ exam: No pop, clicking, pain, good ROM, No history of TMJ injury or dysfunction Periodontal exam: Chronic periodontal pathology in all quadrants Head/Neck exam: Neck is supple, FROM, Able to extend and flex neck w/o difficulty, no masses, no abnormalities, no airway issues, no evidence of sleep apnea. Treatment Plan: Admission on medical service for fluid management, IV antibiotics, diet as tolerated. OK for discharge on oral meds as per Hospitalist service--no acute oral surgery needed at this time. OK for D/C once medically stable I instructed him that he MUST find a dentist for dental x rays and treatment planing (possible full mouth extractions and future dentures) I reviewed the treatment plan and importance of finding a dentist upon D/C LEROY with the patient Understanding was expressed. The teeth are decayed and fractured and removal is indicated LEROY once he gets himself to a dentist upon Discharge for treatment planning. Please let me know if I can be of any further service. OK for discharge and follow up with dentist to develop treatment plan once medically stable. Allergies Allergy/AdvReac Type Severity Reaction Status Date / Time No Known Allergies Allergy Unverified 01/29/21 02:45 Home Medications Medication Instructions Recorded Confirmed Type No Known Home Medications 01/29/21 01/29/21 History Patient History Social History Smoking Status: Current every day smoker Tobacco Type: Cigarettes Preferred Language: Italian Feels Safe at Home: Yes Results & Data ([facility]) Vital Signs (Past 12 Hours) Vital Signs Temp Pulse Pulse Resp BP BP Pulse Ox 01/29/21 08:46 36.7 C 61 20 106/63 99 01/29/21 08:13 65 18 98/67 L 95 01/29/21 04:00 78 17 108/64 99 01/29/21 03:30 77 13 104/61 98 01/29/21 03:02 76 18 109/63 100 01/29/21 03:01 74 15 109/63 100 01/29/21 01:45 65 15 102/61 100 01/29/21 00:28 37.2 C 79 22 70/51 L 99 PG Care Time/CCT Total # of Minutes Spent Total Time Spent with Patient: Total time spent is greater than 50% in coordination of care (as documented) at patient's floor/unit and/or counseling patient: Coding Level of Care Code 30840 Office/OBS Consult Lvl 3 Diagnoses Severe sepsis A41.9; R65.20 Septic shock A41.9; R65.21 Facial cellulitis L03.211 Periapical abscess of tooth with fistula K04.6
[2021-01-29] MEDS: AMPICILLIN/SULBACTAM SOD 3,000 MG in 0.9 % SODIUM CHLORIDE 100 ML IV SCH ×3 (10:21→20:18)
[2021-01-29 11:57] LABS: Appearance Urine Clear (Clear); Bilirubin Urine Negative (Negative); Blood Urine Negative (Negative); Color Urine Yellow; Glucose Urine UA Negative (Negative); Ketones Urine Negative (Negative); Leukocyte Esterase Urine Negative (Negative); Nitrite Urine Negative (Negative); Protein Urine Negative (Negative); Specific Gravity Urine 1.014 (1.000-1.030); Urobilinogen Urine Negative (Negative)
[2021-01-29 12:16] LABS: Amphetamines+Metham, Urine Neg (Neg); Barbiturates, Urine Neg (Neg); Benzodiazepine, Urine Neg (Neg); Cocaine, Urine Neg (Neg); MDMA (Ecstacy), Urine Neg (Neg); Methadone, Urine Neg (Neg); Opiate, Urine Neg (Neg); Phencyclidine, Urine Neg (Neg)
--- NOTE | 2021-01-29 12:27 | Electrocardiogram Report ---
Test Reason : Blood Pressure : / mmHG Vent. Rate : 065 BPM Atrial Rate : 065 BPM P-R Int : 118 ms QRS Dur : 092 ms QT Int : 426 ms P-R-T Axes : 036 -17 011 degrees QTc Int : 443 ms Normal sinus rhythm with sinus arrhythmia RSR' or QR pattern in V1 suggests right ventricular conduction delay Nonspecific T wave abnormality No previous ECGs available Confirmed by Peter Carias ([id number]) on 01/29/2021 12:26:49 PM Referred By: REFERRED SELF Confirmed By:Peter Carias
[2021-01-29] MEDS: dexAMETHasone 8 MG in SYRINGE 0 ML IV SCH ×2 (14:15→20:19)
[2021-01-29] MEDS: HEPARIN SOD 5,000 UNIT/0.5 ML VIAL SQ SCH ×2 (14:15→20:19)
--- NOTE | 2021-01-29 15:52 | Hospitalist Progress Note ---
Date of Service January 29, 2021 Assessment & Plan (1) Periapical abscess of tooth with fistula: (2) Severe sepsis: (3) Facial cellulitis: Plan: Present on admission with right facial swelling and tenderness and syncopal episode Meet sepsis criteria on admission with elevated WBC, tachycardia and lactic acid and hypotension CT neck showed large periapical cyst of the right first mandibular molar. There is an adjacent 1.5 x 0.4 cm abscess abutting the adjacent lateral cortex of the mandible. Extensive associated cellulitis.Additional multifocal periapical cysts with advanced dental caries. Received IV Zosyn and Vanco in the ER He was started on Unasyn Continue IVF Blood cx collected - pending Oral maxillofacial surgeon on board- no acute oral surgery needed at this time. Will need to follow up with dentist for dental x rays and treatment planing (possible full mouth extractions and future denture OK from OMF surgeon standpoint to discharge home Continue monitor closely DVT px on heparin SubQ Code Status Full code Admission and Anticipated Discharge Date Admission Date: January 29, 2021 Subjective Pt was seen and examined for follow up of facial cellulitis Lying in bed with no acute distress Pt said that he is feeling alot better now He said that the pain improves Denies any chest pain, palpitation, dizziness and SOB Review of Systems Review of Systems: All systems reviewed & are unremarkable except as noted in Subjective Physical Exam Physical Exam: General- No acute distress Head- atraumatic Eyes- PERRL, EOMI, ENT- oropharynx clear, right facial swelling Neck- supple, no JVD Lungs- clear to auscultation Heart- regular rhythm; no murmur Abdomen- normal bowel sounds, soft, nontender Extremities- no calf tenderness Neuro- alert, oriented x 3; PERRL, EOMI; no facial palsy; no dysarthria Skin- warm & dry Results & Data Results & Data ([facility]) Vital Signs (Past 12 Hours) Vital Signs Temp Pulse Pulse Resp BP BP BP 01/29/21 15:10 36.8 C 63 20 95/55 L 01/29/21 15:08 80 01/29/21 11:53 36.6 C 91 H 20 108/72 01/29/21 11:34 67 01/29/21 08:46 36.7 C 61 20 106/63 01/29/21 08:13 65 18 98/67 L 01/29/21 04:00 78 17 108/64 Pulse Ox 01/29/21 15:10 99 01/29/21 15:08 01/29/21 11:53 99 01/29/21 11:34 01/29/21 08:46 99 01/29/21 08:13 95 01/29/21 04:00 99
[2021-01-29] MEDS: IBUPROFEN 200 MG TAB PO PRN (20:17)
[2021-01-30] MEDS: ACETAMINOPHEN 325 MG TAB PO PRN (03:53)
[2021-01-30] MEDS: AMPICILLIN/SULBACTAM SOD 3,000 MG in 0.9 % SODIUM CHLORIDE 100 ML IV SCH ×3 (03:53→15:08)
[2021-01-30] MEDS: dexAMETHasone 8 MG in SYRINGE 0 ML IV SCH (05:22)
[2021-01-30] MEDS: HEPARIN SOD 5,000 UNIT/0.5 ML VIAL SQ SCH ×2 (05:23→14:38)
[2021-01-30] MEDS: IBUPROFEN 200 MG TAB PO PRN (08:56)
[2021-01-30 09:04] LABS: Hematocrit (blood only) 40.3 % (42-52); Hemoglobin 13.6 g/dL (14.0-18.0); Immature Granulocytes # (auto) 0.07 K/uL (0.00-0.02); Immature Granulocytes % (auto) 0.3 %; Lymphocytes # (auto) 1.08 K/uL (1.2-3.4); Lymphocytes % (auto) 5.3 %; Mean Corpuscular Hemoglobin 30.7 pg (25-34); Mean Corpuscular Hgb Conc 33.7 g/dL (32-36); Mean Platelet Volume 11.2 fL (7.4-10.4); Monocytes # (auto) 0.36 K/uL (0.11-0.59); Monocytes % (auto) 1.8 %; Neutrophils % (auto) 92.6 %; Platelet Count 280 K/uL (130-400); RDW Coefficient of Variation 13.4 % (11.5-14.5); RDW Standard Deviation 44.3 fL (36.4-46.3); Red Blood Count 4.43 M/uL (4.7-6.1); White Blood Count 20.21 K/uL (4.8-10.8)
[2021-01-30 09:27] LABS: BUN Creatinine Ratio 7.4 (10-20); Calcium 9.3 mg/dl (8.5-10.1); Creatinine Clr Calc Pharmacy 59.3 ml/min; Est GFR (African American) 88.3 ml/min; Est GFR (Non-African American) 76.2 ml/min; Potassium 4.1 mmol/L (3.5-5.1)
--- NOTE | 2021-01-30 13:49 | Discharge Summary ---
Date of Service January 30, 2021 Admission HPI Per Admitting Provider History obtained from patient and records. Medical history significant for Tourette syndrome, ongoing tobacco abuse. Few days history of right dental pain on the front teeth followed by swelling of the face, jaw, neck. No chest pain, no S OB, no headache, no sore throat, no voice change, no trouble opening the mouth. No fever, no chills. Some nausea and weakness. Transient syncopal event at home. No improvement with single dose of amoxicillin taken at home. SBP 70s at one point in the ER. Patient given Zosyn, Vancomycin, and Decadron at the ER. Medical History as above Surgical History : None Family History : Hypertension Personal/Social history : Half pack daily, no EtOH intake, currently unemployed/prior [employer] employment Admission Exam Per Admitting Provider GENERAL: Comfortable, episodic lethargy, underweight, no respiratory distress SKIN: Normal color, warm HEENT: [place] palpebral conjunctivae, no ptosis, dry buccal mucosa, poor dentition, wiggly carious premolar, right mandible, no trismus NECK : Supple, right neck swelling with minimal tenderness CHEST : CTA, no tenderness HEART : RRR, no obvious murmurs ABDOMEN: no distention, nontender EXTREMITIES : No LE swelling/tenderness, no other conspicuous deformities noted NEUROLOGIC : Episodic lethargy, no facial asymmetry, no other gross focality Principal Diagnosis (1) Periapical abscess of tooth with fistula: (2) Severe sepsis: (3) Facial cellulitis: Discharge Exam General- No acute distress Head- atraumatic Eyes- PERRL, EOMI, ENT- oropharynx clear, right facial swelling Neck- supple, no JVD Lungs- clear to auscultation Heart- regular rhythm; no murmur Abdomen- normal bowel sounds, soft, nontender Extremities- no calf tenderness Neuro- alert, oriented x 3; PERRL, EOMI; no facial palsy; no dysarthria Skin- warm & dry Discharge Data Allergies Allergy/AdvReac Type Severity Reaction Status Date / Time No Known Allergies Allergy Unverified 01/29/21 02:45 Consultations 01/29/21 04:50 ED Decision to Admit Stat 01/29/21 06:13 Consult Oromaxillofacial Surgery Routine Ordered Studies 01/29/21 00:44 CT soft tissue neck w con Urgent CT soft tissue neck w con HISTORY: 25 years-old Male rt lower jaw dental infection on to rt upper neck acute right lower jaw pain with dental infection COMPARISON: None TECHNIQUE: Multiple axial of the soft tissues of the neck were obtained fo llowing the intravenous ministration of 94 mL Optiray 320. A dose lowering technique was used consistent with the principals of DON. FINDINGS: Extensive subcutaneous edema of the right mandibular tissues extends into the right cheek, right submandibular distribution and right neck with mild thickening of the platysma fascia. This is centered around a peripherally enhancing 1.5 x 0.4 cm abscess on image 178 series 3 which abuts the lateral cortex of the mandible. This is adjacent to a large periapical cyst involving the right first mandibular molar. Numerous moderate large periapical cysts with advanced dental caries. Mastoid air cells are clear. 2.4 cm focus of polypoid mucosal thickening involves the left maxillary sinus. Degenerative changes of the cervical spine. The imaged intracranial structures appear unremarkable. Prominent right cervical chain lymph nodes are likely reactive measuring up to 8 mm. No pneumothorax. IMPRESSION: 1. Large periapical cyst of the right first mandibular molar. There is an adjacent 1.5 x 0.4 cm abscess abutting the adjacent lateral cortex of the mandible. Extensive associated cellulitis. This finding was called/faxed to the emergency department at time of dictation. 2. Additional multifocal periapical cysts with advanced dental caries. 3. Prominent reactive cervical chain lymph nodes. ACT 112: Negative or not required by law. The above report was generated using voice recognition software. It may contain grammatical, syntax or spelling errors. Electronically signed by: Clive Gimenez M.D. 01/29/2021 8:31 AM Dictated: 01/29/21824Transcribed: 01/29/21824 Hospital Course (1) Periapical abscess of tooth with fistula: (2) Severe sepsis: (3) Facial cellulitis: Present on admission with right facial swelling and tenderness and syncopal episode Meet sepsis criteria on admission with elevated WBC, tachycardia and lactic acid and hypotension CT neck showed large periapical cyst of the right first mandibular molar. There is an adjacent 1.5 x 0.4 cm abscess abutting the adjacent lateral cortex of the mandible. Extensive associated cellulitis.Additional multifocal periapical cysts with advanced dental caries. Received IV Zosyn and Vanco in the ER He was started on Unasyn Continue IVF Blood cx collected - pending Oral maxillofacial surgeon on board- no acute oral surgery needed at this time. Will need to follow up with dentist for dental x rays and treatment planing (possible full mouth extractions and future denture OK from OMF surgeon standpoint to discharge home Continue monitor closely DVT px on heparin SubQ Code Status Full code Total Time Total Time Spent Total Time Spent (In Minutes): 35 minutes Discharge Plan Discharge Items Patient Disposition: Home - Self-Care Reason For Visit: SEPSIS Discharge Diagnosis: (1) Periapical abscess of tooth with fistula: (2) Severe sepsis: (3) Facial cellulitis: Activity: Resume your previous activity Non-emergency contact: Primary Care Provider Call non-emergency contact if: you have any medication questions and your temperature is above 101 Follow-up/Referrals: PCP,NO [Primary Care Provider] - Diet: Heart Healthy Diet Texture: Easy to Chew Addtl Attending Provider Instructions: Follow up with your primary care provider within 1 week Follow up with your dentist for dental xrays and treatment planing (please call to arrange for the appointment) Complete the course of the antibiotic with Augmentin You can alternate Tylenol extra strength with Ibuprofen 400mg as needed for pain Seek medical attention if your symptoms worsening or develop any fever Pending Studies at Discharge: No Stand-Alone Forms: [facility], Smoking Cessation Medications and DC Order Discharge Orders: Discharge Order (Routine); Ordered 01/30/21 Ordered By: Jeronimo Mendoza Admission Data Admit Date/Time: 01/29/21 06:10 Attending Provider: Jeronimo Mendoza Admit Provider: Jeronimo Mendoza Primary Care Provider: PCP,NO Other Providers: Reagan Jose Other Interventions: Discharge Summary Assessment (RN) Last Done: 01/30/21 13:48
[2021-02-01 23:06] LABS: Marijuana Quant, GCMS Urine 355 ng/mL (<5)
--- NOTE | 2021-02-08 07:12 | Coding Query ---
SEPSIS To promote full compliance with coding requirements relating to patient care, physician participation is requested in all cases of drawer fitter uncertainty. Please assist us with the question(s) below: In responding to this query, please exercise your independent professional judgement. The fact that a question is asked does not imply that any particular answer is desired or expected. We appreciate your clarification on this issue. Throughout the medical record, you have clearly documented a localized infection and your patient has clinical evidence of a generalized sepsis or severe sepsis. The medical record reflects the following clinical findings: respirations >20/minute on 01/29, WBC count >12,000 on 01/29, significant edema, hypotension, elevated lactic acid, tachycardia all on 01/29. Both Severe Sepsis and Septic Shock are documented in the chart. Please clarify below: ____ ( ) Severe Sepsis (Sepsis associated with acute organ dysfunction) Specify Organism Specify Associated Condition/Diagnosis (x) Present on Admission () Not present on admission () Unable to clinically determine ( ) Septic Shock (Severe sepsis with acute circulatory failure, unexplained by other causes) () Present on Admission () Not present on admission () Unable to clinically determine ( ) Other, patient has: Thanks, [place]
== END 2021-01-30 15:47 | disposition home or self-care (01) | DRG 872 ==
LOC: ED 00:24 → 2N 06:10